=== PATIENT | female | born 1995 | race Caucasian/White ===

== ENCOUNTER 2020-04-04 10:08 | Emergency (ER) | payer OTHER, SELFPAY ==
[2020-04-04 10:12] VITALS: BP 143/78; PULSE 82; RESP 20; TEMP 36.6; O2SAT 99; BMI 31.2
[2020-04-04 10:51] VITALS: BP 125/71; PULSE 68; RESP 18; O2SAT 98
--- NOTE | 2020-04-04 10:51 | XR_ITS ---
EXAMINATION: XR CHEST CLINICAL INFORMATION: Shortness of breath COMPARISON: Chest radiographs 04/22/2017, 03/15/2017 TECHNIQUE: Portable upright AP view of the chest was obtained. FINDINGS: The lungs are clear. There is no airspace consolidation or definite groundglass opacity. No pleural reaction, pneumothorax, or effusion. The heart is normal in size. The hilar and mediastinal contours are normal. There is gentle curvature upper thoracic spine. No visible acute bony abnormality. XR/XR chest 1V IMPRESSION: Unremarkable examination.
--- NOTE | 2020-04-04 10:54 | ECG_ITS ---
Test Reason : DIZZINESS Blood Pressure : / mmHG Vent. Rate : 058 BPM Atrial Rate : 058 BPM P-R Int : 142 ms QRS Dur : 084 ms QT Int : 406 ms P-R-T Axes : 033 060 029 degrees QTc Int : 398 ms Sinus bradycardia Otherwise normal ECG When compared with ECG of 15-MAR-2017 12:26, No significant change was found Referred By: Elias Lal Electronically Signed By:DONNA HERRING MD
--- NOTE | 2020-04-04 10:57 | PC.NURSE ---
Patient arrives reporting taking 800mg Ibuprofen with 1000mg Excedrin this morning to prevent a migraine. Patient reports shortly after becoming shaky, diaphoretic, and dizzy. Alert and oriented at this time. Neuros intact. Respirations regular and even. Skin PWD. Darrick GOMEZ at bedside to evaluate. Awaiting orders. Report given to Drew CANAS.
[2020-04-04 11:43] LABS: MANUAL DIFF FLAG NO
[2020-04-04 11:45] LABS: Basophils Absolute Auto 0.1 X10*3/uL (0.0-0.2); Basophils Percent Auto 0.5 % (0-2); Eosinophils Absolute Auto 0.1 X10*3/uL (0.0-0.4); Eosinophils Percent Auto 0.9 % (0-4); Hematocrit 40.9 % (37-47); Hemoglobin 13.2 g/dl (12.0-16.0); Imm Gran Abs Auto 0.02 X10*3/uL (0.00-0.03); Imm Gran Pct Auto 0.2 % (0.0-0.4); Lymphocytes Absolute Auto 1.9 X10*3/uL (1.2-4.9); Lymphocytes Percent Auto 19.4 % (20-40); Mean Corpuscular HGB Conc 32.3 g/dl (31.0-35.0); Mean Corpuscular Hemoglobin 28.8 pg (27.0-33.0); Mean Corpuscular Volume 89.3 fL (80-98); Mean Platelet Volume 10.3 fL (9.4-12.3); Monocytes Absolute Auto 0.6 X10*3/uL (0.1-1.2); Monocytes Percent Auto 5.7 % (2-11); Neutrophils Absolute Auto 7.1 X10*3/uL (2.0-8.3); Neutrophils Percent Auto 73.3 % (45-73); Platelet Count 291 X10*3/uL (160-400); Red Blood Count 4.58 X10*6/uL (4.20-5.50); Red Cell Distribution Width 13.5 % (11.0-16.0); White Blood Count 9.6 X10*3/uL (4.8-10.8)
[2020-04-04] MEDS: 0.9 % Sodium Chloride 1,000 ML 999 ML IVCONT (11:48)
[2020-04-04] MEDS: LORazepam 1 MG TABLET PO (11:49)
[2020-04-04 11:52] VITALS: BP 118/75; PULSE 60; RESP 18; TEMP 36.9; O2SAT 100
[2020-04-04 11:56] LABS: UPreg QC Valid YES; Urine Pregnancy NEGATIVE (NEGATIVE)
[2020-04-04 12:09] LABS: Acetaminophen LAB 4 mcg/mL (<30); Salicylate < 5.0 mg/dL (15-30)
[2020-04-04 12:10] LABS: Ethanol < 10 mg/dL
[2020-04-04 12:11] LABS: Anion Gap 13 (12-20); Blood Urea Nitrogen 14 mg/dL (9-16); Calcium 9.2 mg/dL (8.4-10.2); Carbon Dioxide 25 mmol/L (22-29); Chloride 105 mmol/L (96-108); Creatinine Clr Calc Pharmacy 106.2; Estimated Glomerular Filt Rate > 60; Glucose Random 86 mg/dL (60-115); Potassium 4.8 mmol/l (3.3-5.1); Sodium 138 mmol/L (135-145)
--- NOTE | 2020-04-04 12:12 | PC.NURSE ---
PT AMBULATED TO BR W/ EVEN STEADY GAIT.
[2020-04-04 12:13] LABS: Alanine Aminotransferase 16 U/L (0-31); Albumin Level 4.3 g/dL (3.5-5.0); Alkaline Phosphatase 61 U/L (39-117); Aspartate Amino Transferase 14 U/L (5-31); Bilirubin Direct 0.3 mg/dL (0.0-0.5); Bilirubin Total 0.5 mg/dL (0.0-1.0); Total Protein 7.2 g/dL (6.5-8.0)
[2020-04-04 12:23] LABS: Amphetamine Screen Urine Not Detected (Not Detect); Barbiturates, Urine Not Detected (Not Detect); Benzodiazepines Screen Urine Not Detected (Not Detect); Cannabinoid Screen Urine Not Detected (Not Detect); Cocaine Screen Urine Not Detected (Not Detect); Opiate Screen Urine Not Detected (Not Detect); Phencyclidine Screen Urine Not Detected (Not Detect)
[2020-04-04 13:38] VITALS: BP 121/79; PULSE 67; RESP 16; TEMP 36.6; O2SAT 99
--- NOTE | 2020-04-04 13:42 | ED_ITS ---
HPI - Dizziness General Chief Complaint: Dizziness Stated Complaint: dizziness Time Seen by Provider: 04/04/20 10:38 History of Present Illness HPI Narrative: Patient complains of headache dizziness anxiety, she has a long history of migraines and has had a run of typical migraines for 3 days this started 3 days ago and she gets a mild aura of blurred vision prior to her migraines and then gets a headache with photophobia that is over the top of her head and behind the left eye, this is typical presentation of her migraines Usually she just gets a migraine which resolves and she treats it with Excedrin and Motrin, but for the last 3 days the migraine seems to get better than a few hours later it starts again with the same aura in the same return of typical symptoms Today she was at work and felt a migraine coming on again and she says she has been increasingly anxious about her migraines and at work she got an episode of feeling lightheaded dizzy short of breath with tingling in her toes and fingertips and feeling very anxious, but her headache was very mild and she comes here with a main complaint of feeling short of breath dizzy and anxious Related Data Previous Rx's Medication Instructions Recorded lorazepam [Ativan] 1 mg PO TID PRN #10 tab 04/04/20 sumatriptan succinate [Imitrex] See Rx Instructions .ROUTE 04/04/20 .COMPLEX #10 tab Allergies Allergy/AdvReac Type Severity Reaction Status Date / Time No Known Allergies Allergy Unverified 12/28/19 16:18 [No Known Allergies*] Review of Systems Review of Systems: Positive for dizziness shortness of breath and anxiety and headache Negatives are no fever no chills no shortness of breath no neck pain no chest pain no palpitations no exertional symptoms no nausea no vomiting no abdominal pain no fainting no urinary symptoms no numbness no weakness no rash, no calf pain no leg swelling Yes all other systems are reviewed and are negative [facility] Past Medical History Attestation statement: The following information was validated with the patient. [facility] Narrative: Patient has history of migraine and anxiety for which she is treated by therapist, but she has had increasingly frequent episodes of stress and anxiety She does smoke cigarettes and said she has increased her smoking due to her cup uncontrolled episodes of anxiety, no drugs no alcohol Medical History (Updated 04/05/20 @ 00:00 by Background Daemon) Asthma Social History Social History Alcohol intake: current Alcohol intake frequency: 0-2 drinks per day Smoking Status: Current every day smoker Use of substances other than those prescribed or required for medical reasons: No Advance Directives: No Advance Directives Information Provided: Yes Physical Exam Vital Signs: Vital Signs: Last Vital Signs Temp 98 F 04/04/20 13:38 Pulse 67 04/04/20 13:38 Resp 16 04/04/20 13:38 BP 121/79 04/04/20 13:38 Pulse Ox 99 04/04/20 13:38 Body Mass Index 31.2 General appearance is anxious appearing patient in no distress, cooperative appropriate A&O x3 Normocephalic atraumatic, pharynx is well hydrated The neck is supple The chest is clear with full symmetric equal breath sounds, no respiratory distress The heart rate and rhythm regular, no murmurs Abdomen soft nontender Extremities no calf tenderness no edema Course Course Course Narrative: Chest x-ray was normal Lab work did not reveal any anemia or hypoglycemia, patient was not , aspirin and Tylenol levels were normal Patient was treated with Ativan which relieved her anxiety and her dizziness and all symptoms resolved, she was also treated with steroid in hopes of preventing recurrence of her migraines She was advised to follow with primary doctor for further evaluation of her anxiety and we started I am a tracks as a potential abortive agent if she gets the or and feels a migraine is coming on She denied any suicidal or violent thoughts associated with her anxiety MDM - Dizziness Lab Data Attestation: I reviewed the patient's lab results. Result diagrams: 04/04/20 11:26 04/04/20 11:26 Labs: Lab Results 04/04/20 04/04/20 04/04/20 Range/Units 11:20 11:21 11:26 WBC 9.6 (4.8-10.8) X10*3/uL RBC 4.58 (4.20-5.50) X10*6/uL Hgb 13.2 (12.0-16.0) g/dl Hct 40.9 (37-47) % MCV 89.3 (80-98) fL MCH 28.8 (27.0-33.0) pg MCHC 32.3 (31.0-35.0) g/dl RDW 13.5 (11.0-16.0) % Plt Count 291 (160-400) X10*3/uL MPV 10.3 (9.4-12.3) fL Immature Gran % (Auto) 0.2 (0.0-0.4) % Neut % (Auto) 73.3 H (45-73) % Lymph % (Auto) 19.4 L (20-40) % [place] % (Auto) 5.7 (2-11) % Eos % (Auto) 0.9 (0-4) % Baso % (Auto) 0.5 (0-2) % Lymph # (Auto) 1.9 (1.2-4.9) X10*3/uL [place] # (Auto) 0.6 (0.1-1.2) X10*3/uL Eos # (Auto) 0.1 (0.0-0.4) X10*3/uL Baso # (Auto) 0.1 (0.0-0.2) X10*3/uL Abs Immat Gran (auto) 0.02 (0.00-0.03) X10*3/uL Absolute Neuts (auto) 7.1 (2.0-8.3) X10*3/uL Absolute Nucleated RBC 0.000 (0.0-0.012) X10*3/uL Nucleated RBC % (auto) 0.0 (0.0-0.2) /100WBC Sodium (135-145) mmol/L Potassium (3.3-5.1) mmol/l Chloride (96-108) mmol/L Carbon Dioxide (22-29) mmol/L Anion Gap (12-20) BUN (9-16) mg/dL Creatinine (0.5-1.4) mg/dL Estim Creat Clear Calc Estimated GFR Random Glucose (60-115) mg/dL Calcium (8.4-10.2) mg/dL Total Bilirubin (0.0-1.0) mg/dL Direct Bilirubin (0.0-0.5) mg/dL AST (5-31) U/L ALT (0-31) U/L Alkaline Phosphatase (39-117) U/L Total Protein (6.5-8.0) g/dL Albumin (3.5-5.0) g/dL Urine Test NEGATIVE (NEGATIVE) Salicylates (15-30) mg/dL Urine Opiates Screen Not Detected (Not Detect) Acetaminophen (<30) mcg/mL Ur Barbiturates Screen Not Detected (Not Detect) Ur Phencyclidine Scrn Not Detected (Not Detect) Ur Amphetamines Screen Not Detected (Not Detect) U Benzodiazepines Scrn Not Detected (Not Detect) Urine Cocaine Screen Not Detected (Not Detect) U Marijuana (THC) Screen Not Detected (Not Detect) Ethyl Alcohol mg/dL 04/04/20 04/04/20 04/04/20 Range/Units 11:26 11:26 11:26 WBC (4.8-10.8) X10*3/uL RBC (4.20-5.50) X10*6/uL Hgb (12.0-16.0) g/dl Hct (37-47) % MCV (80-98) fL MCH (27.0-33.0) pg MCHC (31.0-35.0) g/dl RDW (11.0-16.0) % Plt Count (160-400) X10*3/uL MPV (9.4-12.3) fL Immature Gran % (Auto) (0.0-0.4) % Neut % (Auto) (45-73) % Lymph % (Auto) (20-40) % [place] % (Auto) (2-11) % Eos % (Auto) (0-4) % Baso % (Auto) (0-2) % Lymph # (Auto) (1.2-4.9) X10*3/uL [place] # (Auto) (0.1-1.2) X10*3/uL Eos # (Auto) (0.0-0.4) X10*3/uL Baso # (Auto) (0.0-0.2) X10*3/uL Abs Immat Gran (auto) (0.00-0.03) X10*3/uL Absolute Neuts (auto) (2.0-8.3) X10*3/uL Absolute Nucleated RBC (0.0-0.012) X10*3/uL Nucleated RBC % (auto) (0.0-0.2) /100WBC Sodium 138 (135-145) mmol/L Potassium 4.8 (3.3-5.1) mmol/l Chloride 105 (96-108) mmol/L Carbon Dioxide 25 (22-29) mmol/L Anion Gap 13 (12-20) BUN 14 (9-16) mg/dL Creatinine 0.72 (0.5-1.4) mg/dL Estim Creat Clear Calc 106.2 Estimated GFR > 60 Random Glucose 86 (60-115) mg/dL Calcium 9.2 (8.4-10.2) mg/dL Total Bilirubin (0.0-1.0) mg/dL Direct Bilirubin (0.0-0.5) mg/dL AST (5-31) U/L ALT (0-31) U/L Alkaline Phosphatase (39-117) U/L Total Protein (6.5-8.0) g/dL Albumin (3.5-5.0) g/dL Urine Test (NEGATIVE) Salicylates < 5.0 L (15-30) mg/dL Urine Opiates Screen (Not Detect) Acetaminophen 4 (<30) mcg/mL Ur Barbiturates Screen (Not Detect) Ur Phencyclidine Scrn (Not Detect) Ur Amphetamines Screen (Not Detect) U Benzodiazepines Scrn (Not Detect) Urine Cocaine Screen (Not Detect) U Marijuana (THC) Screen (Not Detect) Ethyl Alcohol < 10 mg/dL 04/04/20 Range/Units 11:26 WBC (4.8-10.8) X10*3/uL RBC (4.20-5.50) X10*6/uL Hgb (12.0-16.0) g/dl Hct (37-47) % MCV (80-98) fL MCH (27.0-33.0) pg MCHC (31.0-35.0) g/dl RDW (11.0-16.0) % Plt Count (160-400) X10*3/uL MPV (9.4-12.3) fL Immature Gran % (Auto) (0.0-0.4) % Neut % (Auto) (45-73) % Lymph % (Auto) (20-40) % [place] % (Auto) (2-11) % Eos % (Auto) (0-4) % Baso % (Auto) (0-2) % Lymph # (Auto) (1.2-4.9) X10*3/uL [place] # (Auto) (0.1-1.2) X10*3/uL Eos # (Auto) (0.0-0.4) X10*3/uL Baso # (Auto) (0.0-0.2) X10*3/uL Abs Immat Gran (auto) (0.00-0.03) X10*3/uL Absolute Neuts (auto) (2.0-8.3) X10*3/uL Absolute Nucleated RBC (0.0-0.012) X10*3/uL Nucleated RBC % (auto) (0.0-0.2) /100WBC Sodium (135-145) mmol/L Potassium (3.3-5.1) mmol/l Chloride (96-108) mmol/L Carbon Dioxide (22-29) mmol/L Anion Gap (12-20) BUN (9-16) mg/dL Creatinine (0.5-1.4) mg/dL Estim Creat Clear Calc Estimated GFR Random Glucose (60-115) mg/dL Calcium (8.4-10.2) mg/dL Total Bilirubin 0.5 (0.0-1.0) mg/dL Direct Bilirubin 0.3 (0.0-0.5) mg/dL AST 14 (5-31) U/L ALT 16 (0-31) U/L Alkaline Phosphatase 61 (39-117) U/L Total Protein 7.2 (6.5-8.0) g/dL Albumin 4.3 (3.5-5.0) g/dL Urine Test (NEGATIVE) Salicylates (15-30) mg/dL Urine Opiates Screen (Not Detect) Acetaminophen (<30) mcg/mL Ur Barbiturates Screen (Not Detect) Ur Phencyclidine Scrn (Not Detect) Ur Amphetamines Screen (Not Detect) U Benzodiazepines Scrn (Not Detect) Urine Cocaine Screen (Not Detect) U Marijuana (THC) Screen (Not Detect) Ethyl Alcohol mg/dL ECG Data Interpretation: EKG was sinus bradycardia with a rate of 58, no acute ST changes, MD was normal QT was normal and QRS duration was normal Discharge Plan Discharge Clinical Impression: Migraine, Anxiety Patient Disposition: Home, Self-Care Additional Instructions: We treated you for both migraine and anxiety M we are sending her home with I am a tracks which is a medication that you will take at the 1st sign of migraine to prevent it from progressing, we also gave yo u a dose of Decadron which is a steroid which often will prevent recurrent migraine from happening again We gave you an Ativan for anxiety which is also helpful Return any time any worse condition or any concerns and follow with primary doctor Prescriptions: New sumatriptan succinate [Imitrex] 50 mg tablet See Rx Instructions .ROUTE .COMPLEX Qty: 10 RF: 0 lorazepam [Ativan] 1 mg tablet 1 mg PO TID PRN (Reason: anxiety) Qty: 10 RF: 0 Stand Alone Forms: Work/School Release Interventions: ED Discharge Assessment Last Done: 04/04/20 14:20 Discharge Date/Time: 04/04/20 14:25
--- NOTE | 2020-04-04 13:43 | PC.NURSE ---
PT RESTING S/F IN BED, REPORTS TOTAL RESOLUTION OF SX, STS FEELS WELL AND IS READY FOR D/C.
== END 2020-04-04 14:25 | disposition home or self-care (01) ==
PROVIDERS: Physician Assistant Medical; Emergency Provider Emergency Medicine Emergency Medical Services
DX: G43.909 Migraine, unspecified, not intractable, without status migrainosus (principal); F41.9 Anxiety disorder, unspecified; Z79.899 Other long term (current) drug therapy
CPT/HCPCS: 36415; 71045; 80048; 80076; 80307; 80320; 81025; 85025; 93005; 96361; 96374; 99284; G0480; J1100

== ENCOUNTER 2020-08-08 14:52 | Emergency (ER) | payer OTHER, SELFPAY ==
[2020-08-08 15:58] LABS: Glucose Urine UA NEG (NEG); Leukocyte Esterase Urine NEG (NEG); Nitrite Urine NEG (NEG); PH 6.5 (5.0-8.0); Specific Gravity - Urine 1.015 (1.005-1.025); Urine Blood TRACE (NEG); Urine Ketones NEG (NEG); Urine Protein NEG (NEG-TRACE)
[2020-08-08 15:59] LABS: Appearance Urine CLEAR; Color Urine YELLOW
[2020-08-08 16:00] LABS: UPreg QC Valid YES; Urine Pregnancy NEGATIVE (NEGATIVE)
[2020-08-08 16:06] LABS: Bacteria Urine TRACE /LPF; Mucus Urine TRACE /LPF; RBC Urine 0-2 /HPF (0); Squamous Epithelial Cell Urine TRACE /LPF; WBC Urine 0-2 /HPF (0-4)
--- NOTE | 2020-08-08 16:13 | ED.ABDPAIN ---
HPI - Abdominal Pain General Chief Complaint: Abdominal Pain Stated Complaint: LOWER ABD PAIN Time Seen by Provider: 08/08/20 16:12 Source: patient Mode of arrival: ambulatory Limitations: no limitations History of Present Illness HPI narrative: Patient history of ovarian cyst complaining of pain in left lower abdomen for last 2- 3 days got worse today pain increased with ambulation in urination. No fever no chills no flank pain no vomiting or diarrhea patient feels slightly nauseated patient had normal bowel movements history of kidney stone no vaginal discharge or bleeding Related Data Previous Rx's Medication Instructions Recorded lorazepam [Ativan] 1 mg PO TID PRN #10 tab 04/04/20 sumatriptan succinate [Imitrex] See Rx Instructions .ROUTE 04/04/20 .COMPLEX #10 tab Allergies Allergy/AdvReac Type Severity Reaction Status Date / Time No Known Allergies Allergy Verified 08/08/20 16:20 [No Known Allergies*] Review of Systems Review of Systems Constitutional : No Weight loss, No Fever, No Chills ENT/Mouth : No sore throat, No Rhinorrhea Eyes: No Eye Pain, No Swelling Cardiovascular : No Chest Pain, no palpitations Respiratory : No Cough, No Sputum, no shortness of breath Gastrointestinal : + Nausea, No Vomiting, No Diarrhea, + abdominal Pain, no black stools Genitourinary : No Dysuria, No Urinary Frequency Musculoskeletal : No joint pain, No Myalgias, No Joint Swelling Skin : No Skin Lesions, No rash Neuro : No Weakness, No Numbness, No Dizziness, No Headache Psych : No Anxiety/Panic, No Depression Heme/Lymph: No Bruising, No Lymphadenopathy Endocrine : No Polyuria, No Polydipsia All other systems reviewed and are negative Physical Exam Vital Signs: Vital Signs: Last Vital Signs Temp 98.7 F 08/08/20 16:17 Pulse 64 08/08/20 16:17 Resp 16 08/08/20 16:17 BP 125/61 08/08/20 16:17 Pulse Ox 100 08/08/20 16:17 Body Mass Index 35.3 Appearance: Alert. Oriented X3. No acute distress. Eyes: PERRLA, No Nystagmus ENT: Pharynx normal. Oral Mucosa moist Neck: Normal inspection. Neck supple. CVS: Normal heart rate and rhythm. Pulses normal. Respiratory: No respiratory distress. Equal air entry bilateral, no wheezing/rales/rhonchi Abdomen: Soft slight deep tenderness left lower quadrant suprapubic area no rebound tenderness or guarding Bowel sounds are present, no mass palpable, no CVA tenderness Skin: Skin warm and dry. Normal skin color. Normal skin turgor. Extremities: No lower extremity edema. No calf tenderness Neuro: Oriented X 3. No motor deficit. No sensory deficit.No cerebellar signs , cranial nerves II-XII intact Course Reevaluation(s) Reevaluation #1: Patient eloped from the ED without ultrasound Time: 17:01 MDM - Abdominal Pain MDM Narrative Medical decision making narrative: Patient lower abdominal pain urine negative for UTI or will do ultrasound to rule out ovarian cyst Lab Data Labs: Lab Results 08/08/20 08/08/20 Range/Units 15:49 15:49 Urine Color YELLOW Urine Appearance CLEAR Urine pH 6.5 (5.0-8.0) Ur Specific [place] 1.015 (1.005-1.025) Urine Protein NEG (NEG-TRACE) MG/DL Urine Glucose (UA) NEG (NEG) MG/DL Urine Ketones NEG (NEG) MG/DL Urine Blood TRACE (NEG) Urine Nitrite NEG (NEG) Ur Leukocyte Esterase NEG (NEG) Urine RBC 0-2 (0) /HPF Urine WBC 0-2 (0-4) /HPF Ur Squamous Epith Cells TRACE /LPF Urine Bacteria TRACE /LPF Urine Mucus TRACE /LPF Urine Test NEGATIVE (NEGATIVE) Discharge Plan Discharge Prescriptions: No Action sumatriptan succinate [Imitrex] 50 mg tablet See Rx Instructions .ROUTE .COMPLEX Qty: 10 RF: 0 lorazepam [Ativan] 1 mg tablet 1 mg PO TID PRN (Reason: anxiety) Qty: 10 RF: 0 PMFSH Past Medical History Medical History Asthma Social History Social History Alcohol intake: current Alcohol intake frequency: 0-2 drinks per day Smoking Status: Current every day smoker Advance Directives: No Advance Directives Information Provided: Yes
[2020-08-08 16:17] VITALS: BP 125/61; PULSE 64; RESP 16; TEMP 37.1; O2SAT 100; BMI 35.3
== END 2020-08-08 17:15 | disposition left against medical advice (07) ==
PROVIDERS: Emergency Provider Emergency Medicine
DX: R10.32 Left lower quadrant pain (principal); F17.200 Nicotine dependence, unspecified, uncomplicated
CPT/HCPCS: 81001; 81025; 99283

== ENCOUNTER 2021-02-28 12:05 | Emergency (ER) | payer OTHER, SELFPAY ==
--- NOTE | 2021-02-28 12:16 | ECG_ITS ---
Test Reason : PALPIATIONS Blood Pressure : / mmHG Vent. Rate : 077 BPM Atrial Rate : 077 BPM P-R Int : 156 ms QRS Dur : 080 ms QT Int : 356 ms P-R-T Axes : 050 040 013 degrees QTc Int : 402 ms Normal sinus rhythm Normal ECG When compared with ECG of 04-APR-2020 11:12, Heart rate has increased Referred By: Generic ED Physician Electronically Signed By:ROYCE COTA MD
[2021-02-28 12:40] VITALS: BP 134/76; PULSE 90; RESP 18; TEMP 37.5; O2SAT 99; BMI 34.2
== END 2021-02-28 21:00 | disposition left against medical advice (07) ==
PROVIDERS: Emergency Provider Emergency Medicine
DX: R00.0 Tachycardia, unspecified (principal)
CPT/HCPCS: 93005; 99283

== ENCOUNTER 2021-04-08 12:46 | Emergency (ER) | payer OTHER, SELFPAY ==
[2021-04-08 13:50] VITALS: BP 148/74; PULSE 94; RESP 18; TEMP 37.1; O2SAT 98; BMI 35.2
== END 2021-04-08 21:40 | disposition left against medical advice (07) ==
LOC: HO.ED 21:38
PROVIDERS: Emergency Provider Emergency Medicine; PCP Internal Medicine
DX: U07.1 COVID-19 (principal)
CPT/HCPCS: 99281; 99282

== ENCOUNTER 2023-08-11 10:28 | Emergency (ER) | payer OTHER, SELFPAY ==
[2023-08-11 12:04] VITALS: BP 115/70; PULSE 57; RESP 16; TEMP 36.2; O2SAT 100; BMI 35.0
--- NOTE | 2023-08-11 12:07 | ED.GENADULT ---
HPI - General Adult General Chief complaint: General Medical Stated complaint: Abscess inner thigh Time Seen by Provider: 08/11/23 15:22 Source: patient Mode of arrival: ambulatory Limitations: no limitations History of Present Illness HPI narrative: 28-year-old female history of obesity presents with complaints of recurrent abscess to the inner thighs ongoing for awhile however she has had this 1 abscess for about a week he reports it is ?size of a softball? and she feels like there is ?channels inside? patient reports it is very uncomfortable she reports she has been getting cyst for awhile however it seems to be worsening. She saw a executive secretary once they gave her topical cream which she is supposed to be applying however not really helping. Denies fevers, chills, nausea, vomiting, abdominal pain. Earlier patient had some substernal chest discomfort without shortness of breath, no radiation of pain, however this has resolved, she tells me my chest just felt sore but now states its gone. Related Data Previous Rx's ?Medication ?Instructions ?Recorded lorazepam 1 mg tablet (Ativan) 1 mg PO TID PRN anxiety #10 tabs 04/04/20 sumatriptan succinate 50 mg tablet See Rx Instructions PO .COMPLEX 04/04/20 (Imitrex) #10 tabs cephalexin 500 mg tablet 500 mg PO Q6H 10 days #40 tabs 08/11/23 clindamycin phosphate 1 % topical 1 appl topical BEDTIME #30 grams 08/11/23 gel Allergies Allergy/AdvReac Type Severity Reaction Status Date / Time No Known Allergies Allergy Verified 08/11/23 12:07 [No Known Allergies*] Review of Systems Review of Systems: Yes all other systems are reviewed and are negative [facility] Past Medical History Attestation statement: The following information was validated with the patient. Source: old records reviewed and nursing notes reviewed Medical History Asthma Social History Social History Alcohol intake: current Alcohol intake frequency: 0-2 drinks per day Advance Directives: No Advance Directives Information Provided: No Do you have a plan to hurt others: No Plan Physical Exam ED Vital Signs: Vital Signs - 24 hr 08/11/23 12:04 08/11/23 17:38 Temperature 97.1 F 97.1 F Pulse Rate 57 57 Respiratory Rate 16 16 Blood Pressure 115/70 115/70 Pulse Oximetry 100 100 Oxygen Delivery Method Room Air Room Air BMI result Body Mass Index 35.0 vss Appearance: Alert.? Oriented X3.? No acute distress.? Head: Normocephalic, atraumatic, no step-offs or deformities Eyes: Pupils equal, round and reactive to light.? Neck: Normal inspection.? Neck supple.? CVS: Normal heart rate and rhythm.? Pulses normal.? Respiratory: No respiratory distress.? Breath sounds normal.? Abdomen: Soft and nontender.? Skin: Skin warm and dry.? Normal skin color.? Normal skin turgor.? + small abscess to left inner thigh 3 cm x 3 cm indurated w/ overlying errythema no warmth no purulence. Extremities: No lower extremity edema.? No calf ttp. 5/5 strength to bilateral upper and lower extremities Neuro: Oriented X 3.? No motor deficit.? No sensory deficit. CN 2-12 intact Course Course Course Narrative: RME- 28 year old female presents for evaluation of left inner thigh abscess. Reports history of similar. She reports it is the size of a softball. It has been there for about one week. Also reports chest pain for since the last 2 days, She endorses heartburn as well as increased anxiety. Will add on EKG Reevaluation(s) Reevaluation #1: EKG non ischemic. Time: 16:16 Reevaluation #2: CBC slight leukocytosis likely secondary to abscess, troponin negative EKG nonischemic. Patient to be discharged home with general surgery follow-up, PCP follow-up. Time: 17:51 Medications Administered Discontinued Medications Generic Name Dose Route Start Last Admin Trade Name Freq PRN Reason Stop Dose Admin Ketorolac Tromethamine 30 mg 08/11/23 16:15 08/11/23 16:43 Ketorolac Tromethamine 30 Mg/Ml Vial IM 08/11/23 16:16 30 mg ONCE ONE Administration Medical Decision Making Medical Decision Making MDM Narrative: 28 year old female presents w/ painful abscess to left inner thigh X 1 week, had chest soreness which has since resolved. PE w/ + small abscess to left inner thigh 3 cm x 3 cm indurated w/ overlying errythema no warmth no purulence. Substernal chest wall tenderness on exam History and physical exam concerning for small abscess with overlying cellulitis likely hidradenitis suppurativa, unlikely Annabelle gangrene, necrotizing infection. Chest pain likely musculoskeletal she did have anterior chest wall tenderness to palpation on exam. Unlikely costochondritis pericarditis, PE, ACS, dissection, pneumonia Plan basic labs, try to do fine needle aspiration however no purulence it is all likely inflammatory. Advised on warm compresses to affected area. Differential Diagnosis Differential Diagnoses: The differential diagnosis associated with the presentation includes History and physical exam concerning for small abscess with overlying cellulitis likely hidradenitis suppurativa, unlikely Annabelle gangrene, necrotizing infection. Chest pain likely musculoskeletal she did have anterior chest wall tenderness to palpation on exam. Unlikely costochondritis pericarditis, PE, ACS, dissection, pneumonia Admission/Observation Consideration of admission/observation: Escalation of care including admission/observation considered unlikely Lab Data 08/11/23 16:15 08/11/23 16:15 Labs: Lab Results 08/11/23 Range/Units 16:15 WBC 11.9 H (4.8-10.8) X10*3/uL RBC 4.58 (4.20-5.50) X10*6/uL Hgb 13.1 (12.0-16.0) g/dl Hct 40.0 (37.0-47.0) % MCV 87.3 (80.0-98.0) fL MCH 28.6 (27.0-33.0) pg MCHC 32.8 (31.0-35.0) g/dl RDW 14.7 (11.0-16.0) % Plt Count 243 (160-400) X10*3/uL MPV 10.3 (9.4-12.3) fL Immature Gran % (Auto) 0.4 (0.0-0.4) % Neut % (Auto) 70.2 (45-73) % Lymph % (Auto) 21.1 (20-40) % [place] % (Auto) 5.5 (2-11) % Eos % (Auto) 2.3 (0-4) % Baso % (Auto) 0.5 (0-2) % Lymph # (Auto) 2.5 (1.2-4.9) X10*3/uL [place] # (Auto) 0.7 (0.1-1.2) X10*3/uL Eos # (Auto) 0.3 (0.0-0.4) X10*3/uL Baso # (Auto) 0.1 (0.0-0.2) X10*3/uL Abs Immat Gran (auto) 0.05 H (0.00-0.03) X10*3/uL Absolute Neuts (auto) 8.3 (2.0-8.3) x10*3/uL Absolute Nucleated RBC 0.000 (0.0-0.012) X10*3/uL Nucleated RBC % (auto) 0.0 (0.0-0.2) /100WBC Sodium 138 (135-145) mmol/L Potassium 4.0 (3.3-5.1) mmol/L Chloride 109 H (96-108) mmol/L Carbon Dioxide 22 (22-29) mmol/L Anion Gap 11 L (12-20) BUN 9 (9-16) mg/dL Creatinine 0.70 (0.5-1.4) mg/dL Estim Creat Clear Calc 112.0 Estimated GFR > 60 Random Glucose 84 (60-115) mg/dL Calcium 8.8 (8.4-10.2) mg/dL Total Bilirubin 0.2 (0.0-1.0) mg/dL AST 15 (5-31) U/L ALT 16 (0-31) U/L Alkaline Phosphatase 55 (39-117) U/L Troponin I High Sens < 2.7 (<3.5-17.0) ng/L Total Protein 6.9 (6.5-8.0) g/dL Albumin 3.8 (3.5-5.0) g/dL Independent Interpretation I performed an independent interpretation of an: EKG (Vent. Rate : 052 BPM Atrial Rate : 052 BPM P-R Int : 160 ms QRS Dur : 076 ms QT Int : 394 ms P-R-T Axes : 034 054 025 degrees QTc Int : 366 ms Sinus bradycardia with sinus arrhythmia Otherwise normal ECG When compared with ECG of 28-FEB-2021 12:23, Vent. rate has decre) Radiology Impression Discussion of test interpretation with radiology: I have reviewed the radiologist's reading. Prescription Management I considered prescription management with: Pain Medication (toradol ) and Antibiotic Chronic Conditions Patient?s care impacted by: Other (obesity ) Critical Care Time Critical Care Time Critical Care Time: No Discharge Plan Discharge Clinical Impression: Hidradenitis suppurativa Patient Disposition: Home, Self-Care Instructions: Hidradenitis Suppurativa (ED) Additional Instructions: Take your medications as prescribed. If you were prescribed antibiotics today, it is important that you take your medication to their entirety, do not skip any doses, do not finish them early. Follow-up with your primary care provider this week. Return to the emergency department with new or worsening symptoms. Such as fevers, chills, chest pain, shortness of breath, nausea, vomiting, dizziness, headache, vision changes, lethargy In case of emergency call 911 Apply warm compresses frequently. Apply topical antibiotic as prescribed and take oral antibiotics as prescribed. Return with new or worsening symptoms Follow-up with general surgery Prescriptions: New clindamycin phosphate 1 % gel 1 appl topical BEDTIME Qty: 30 0RF cephalexin 500 mg tablet 500 mg PO Q6H 10 Days Qty: 40 0RF No Action sumatriptan succinate [Imitrex] 50 mg tablet See Rx Instructions .ROUTE .COMPLEX Qty: 10 0RF Rx Instructions: take 1 tab at onset of headache; if no relief may repeat 1 tab after at least 2 hrs; max = 4 tabs/24 hr lorazepam [Ativan] 1 mg tablet 1 mg PO TID PRN (Reason: anxiety) Qty: 10 0RF Rx Instructions: This medication will cause drowsiness, home use only, no driving for 6 hours after taking Referrals: [facility] [place] [facility] [Provider Group] - 1 day Physician,Unknown J [Primary Care Provider] - 2 days Stand Alone Forms: Work/School Release Interventions: ED Discharge Assessment Last Done: 08/11/23 17:38 Discharge Date/Time: 08/11/23 17:39 Print Language: Yoruba
--- NOTE | 2023-08-11 12:09 | ECG_ITS ---
Test Reason : pain Blood Pressure : / mmHG Vent. Rate : 052 BPM Atrial Rate : 052 BPM P-R Int : 160 ms QRS Dur : 076 ms QT Int : 394 ms P-R-T Axes : 034 054 025 degrees QTc Int : 366 ms Sinus bradycardia with sinus arrhythmia Otherwise normal ECG When compared with ECG of 28-FEB-2021 12:23, Vent. rate has decreased BY 25 BPM Referred By: David Cedeño Electronically Signed By:OZIEL WEBSTER
[2023-08-11 16:21] LABS: MANUAL DIFF FLAG NO
[2023-08-11 16:23] LABS: Basophils Absolute Auto 0.1 X10*3/uL (0.0-0.2); Basophils Percent Auto 0.5 % (0-2); Eosinophils Absolute Auto 0.3 X10*3/uL (0.0-0.4); Eosinophils Percent Auto 2.3 % (0-4); Hemoglobin 13.1 g/dl (12.0-16.0); Imm Gran Abs Auto 0.05 X10*3/uL (0.00-0.03); Imm Gran Pct Auto 0.4 % (0.0-0.4); Lymphocytes Absolute Auto 2.5 X10*3/uL (1.2-4.9); Lymphocytes Percent Auto 21.1 % (20-40); Mean Corpuscular HGB Conc 32.8 g/dl (31.0-35.0); Mean Corpuscular Hemoglobin 28.6 pg (27.0-33.0); Mean Corpuscular Volume 87.3 fL (80.0-98.0); Mean Platelet Volume 10.3 fL (9.4-12.3); Monocytes Absolute Auto 0.7 X10*3/uL (0.1-1.2); Monocytes Percent Auto 5.5 % (2-11); Neutrophils Absolute Auto 8.3 x10*3/uL (2.0-8.3); Neutrophils Percent Auto 70.2 % (45-73); Platelet Count 243 X10*3/uL (160-400); Red Blood Count 4.58 X10*6/uL (4.20-5.50); Red Cell Distribution Width 14.7 % (11.0-16.0); White Blood Count 11.9 X10*3/uL (4.8-10.8)
[2023-08-11] MEDS: Ketorolac Tromethamine 30 MG/ML VIAL IM (16:43)
[2023-08-11 16:48] LABS: Alanine Aminotransferase 16 U/L (0-31); Albumin Level 3.8 g/dL (3.5-5.0); Alkaline Phosphatase 55 U/L (39-117); Anion Gap 11 (12-20); Aspartate Amino Transferase 15 U/L (5-31); Bilirubin Total 0.2 mg/dL (0.0-1.0); Blood Urea Nitrogen 9 mg/dL (9-16); Calcium 8.8 mg/dL (8.4-10.2); Carbon Dioxide 22 mmol/L (22-29); Chloride 109 mmol/L (96-108); Estimated Glomerular Filt Rate > 60; Glucose Random 84 mg/dL (60-115); Sodium 138 mmol/L (135-145); Total Protein 6.9 g/dL (6.5-8.0)
[2023-08-11 17:05] LABS: Troponin-I High Sensitivity < 2.7 ng/L (<3.5-17.0)
[2023-08-11 17:38] VITALS: BP 115/70; PULSE 57; RESP 16; TEMP 36.2; O2SAT 100
== END 2023-08-11 17:39 | disposition home or self-care (01) ==
PROVIDERS: Physician Assistant; Emergency Provider Emergency Medicine
DX: L73.2 Hidradenitis suppurativa (principal); L02.416 Cutaneous abscess of left lower limb; E66.9 Obesity, unspecified; Z68.35 Body mass index [BMI] 35.0-35.9, adult
CPT/HCPCS: 36415; 80053; 84484; 85025; 93005; 96372; 99283; 99284; J1885

== ENCOUNTER → 2023-08-11 12:09 | Outpatient (BNV) | payer OTHER, SELFPAY | PROVIDERS: Emergency Provider Emergency Medicine; Visit Provider Internal Medicine | DX: I49.9 Cardiac arrhythmia, unspecified (principal) | CPT/HCPCS: 93010 ==

== ENCOUNTER 2023-08-17 14:58 | Outpatient (AMB) | payer OTHER, SELFPAY ==
--- NOTE | 2023-08-17 15:03 | MHC.OFFVIS ---
Vital Signs 08/17/23 15:13 Height 5 ft Weight 180 lb BMI 35.2 BP 137/76 Blood Pressure Location Rt brachial Position Sitting Pulse 83 Intake Visit Reasons: Hidradenitis suppurativa inner thigh Intake Note: Patient referred after ER visit for abscess on Lt upper thigh. Hx of HS. Patient c/o: mild improvement with Cephalexin course, clindamycin gel. Saw derm who prescribed topical abx but no improvement 2yrs ago. 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 Because of persistence of symptoms and chronic infections, she would like to know if there is a surgical option for her ailment. She has been seen by Dermatology with limited success in resolving her symptoms. She has no such symptoms elsewhere. Chart was reviewed and patient evaluated [facility] Medical History (Updated 08/17/23 @ 15:12 by ALEXANDRIA Bradshaw) Abscess Asthma Social History (Updated 08/17/23 @ 15:12 by ALEXANDRIA Bradshaw) Alcohol intake: current Alcohol intake frequency: 0-2 drinks per day Tobacco use type: Cigarette Cigarettes Per Day: 12 Physical Exam Vital Signs: Last Vital Signs Pulse 83 08/17/23 15:13 BP 137/76 08/17/23 15:13 BMI result Body Mass Index 35.2 Chest Other: Chest breath sounds bilaterally, HS 1 in 2 GI Other: Abdomen is soft, benign, corpulent Skin Other: Patien has chronic id retinitis suppurative of findings of bilateral upper inner thighs left greater than right. Assessment & Plan Assessment & Plan (1) Hidradenitis suppurativa: Code(s): L73.2 - Hidradenitis suppurativa Category: Surgical Plan I discussed at length with the patient therapeutic options which include continued conservative therapy or surgical excision. I discussed with her that the majority of the disease can be excised but there is limitation as to how large the resection margin can be without compromising closure of the skin wound site. Since the left side is more symptomatic, she wishes to proceed with this side 1st. Risks, benefits, alternatives of the procedure of wide local excision of hidradinitis suppurative pleura the left upper inner thigh skin included but not limited to bleeding, infection, recurrence, numbness, pain, scarring, seroma formation, wound dehiscence and the patient wishes to proceed. All questions answered. Arrangements made for this. Coding Level of Care Code New Pt Level 5 (93768) Diagnoses Hidradenitis suppurativa L73.2
[2023-08-17 15:13] VITALS: BP 137/76; PULSE 83; BMI 35.2
== END 2023-08-17 15:23 | disposition home or self-care (01) ==
PROVIDERS: Visit Provider Surgery
DX: L73.2 Hidradenitis suppurativa (principal)
CPT/HCPCS: 99204

== ENCOUNTER → 2023-08-17 14:58 | Outpatient (BNVA) | payer OTHER, SELFPAY | PROVIDERS: Visit Provider Surgery | DX: L73.2 Hidradenitis suppurativa (principal) | CPT/HCPCS: 99202 ==

== ENCOUNTER 2023-08-20 10:14 | Emergency (ER) | payer OTHER, SELFPAY ==
--- NOTE | ~2023-08-20 | US_ITS ---
EXAMINATION: US OBSTETRICAL ULTRASOUND CLINICAL INFORMATION: Pelvic pain, positive test. COMPARISON: CT abdomen/pelvis 03/15/2017. LMP: 07/23/2023. Gestational age by maternal dates is 4 weeks and 0 days. Estimated date of delivery by maternal dates is 04/28/2024. TECHNIQUE: Transabdominal and transvaginal images were obtained with the patient's consent. FINDINGS: Anteverted uterus measuring 8.1 x 4.8 x 5.1 cm. No uterine mass. The endometrium is thickened measuring up to 1.7 cm in diameter without discrete focal abnormality. No evidence of an intrauterine gestational sac at this time. The ovaries are normal in morphology with preserved flow on color and spectral Doppler at the moment of this examination. The right ovary measures 3.4 x 2.3 x 2.3 cm and the left ovary measures 3.0 x 2.3 x 3.3 cm. There is a 1.2 cm corpus luteal cyst in the left ovary. No adnexal mass. Engorged left adnexal vessels that could indicate some degree of pelvic venous insufficiency. No free fluid. US/US OB pelvic and transvaginal IMPRESSION: 1. No evidence of intrauterine gestation at the moment of this examination, possibly due to early dates. Additional differential considerations include miscarriage or ectopic . Recommend correlation with quantitative hCG and very short-term follow-up pelvic ultrasound. 2. No adnexal mass nor significant amount of free fluid. 3. Equivocal pelvic venous insufficiency in the left adnexa manifested by engorged periuterine vessels.
[2023-08-20 10:21] VITALS: BP 139/88; PULSE 78; RESP 16; TEMP 36.9; O2SAT 97; BMI 34.8
--- NOTE | 2023-08-20 10:40 | ED_ITS ---
HPI - General Adult General Chief complaint: General Medical Stated complaint: ectopic ? Time Seen by Provider: 08/20/23 10:39 Source: patient Mode of arrival: ambulatory Limitations: no limitations History of Present Illness HPI narrative: Patient is a 28 year old assigned female at with no reported medical history presenting to the emergency department today with pelvic pain and a positive test. Patient states that she has been having pelvic pain since last night, went to urgent care, and had a positive test. Patient states that she was sent here to rule out an ectopic . Patient states that she has an abscess in her left inner thigh that she has an appointment with the general surgeon for drainage on September 16. Patient denies any dizziness, lightheadedness, abdominal pain, nausea, vomiting, fever, chills, blurry vision, double vision, loss of vision, chest pain, difficulty breathing, shortness of breath, back pain, night sweats, pain with urination, increased urinary frequency, increased urinary urgency, blood in her urine or stool, syncope or a near syncopal episode, recent trauma or falls, bowel incontinence, bladder incontinence, bowel retention, bladder retention, or any other complaints at this time. Onset (ago): day(s) (1) Severity: mild Severity scale (1-10): 3 Relieving factors: none Exacerbating factors: none Associated symptoms: denies other symptoms Treatments prior to arrival: none Related Data Previous Rx's ?Medication ?Instructions ?Recorded cephalexin 500 mg tablet 500 mg PO Q6H 10 days #40 tabs 08/11/23 clindamycin phosphate 1 % topical 1 appl topical BEDTIME #30 grams 08/11/23 gel vit no.95-ferrous 1 tab PO DAILY #30 tabs 08/20/23 fumarate 28 mg-folic acid 800 mcg tablet ( Multivitamins) Allergies Allergy/AdvReac Type Severity Reaction Status Date / Time No Known Allergies Allergy Verified 08/20/23 10:23 [No Known Allergies*] Review of Systems 2 Constitutional: Constitutional: Reports no additional constitutional complaints, Denies chills, Denies fever(s) and Denies night sweats Eyes: Eyes: Reports no additional eye complaints, Denies blurry vision, Denies change in vision, Denies diplopia, Denies eye discharge, Denies loss of vision and Denies eye pain ENT: Denies dizziness Cardiovascular: Cardiovascular: Reports no additional cardiovascular complaints, Denies chest pain, Denies lightheadedness, Denies Loss of Consciousness and Denies dyspnea Respiratory: Respiratory: Reports no additional respiratory complaints and Denies dyspnea Gastrointestinal: Gastrointestinal: Reports no additional gastrointestinal complaints, Denies abdominal pain, Denies melena, Denies hematochezia, Denies change in bowel habits and Denies change in stool character Genitourinary: Genitourinary: Denies hematuria, Denies urinary frequency, Denies dysuria, Reports pelvic pain, Denies urinary incontinence, Denies urinary hesitancy and Denies urinary urgency Musculoskeletal: Musculoskeletal: Reports no additional musculoskeletal complaints, Denies numbness and Denies tingling Neurologic: Denies dizziness, Denies loss of vision, Denies numbness and Denies tingling Psychiatric: Psychiatric: Reports no additional psychiatric complaints Endocrine: Endocrine: Reports no additional endocrine complaints Hematologic/Lymphatic: Hematologic/Lymphatic: Reports no additional hematologic/lymphatic complaints Allergic/Immunologic: Allergic/Immunologic: Reports no additional allergic/immunologic complaints PMFSH Past Medical History Attestation statement: The following information was validated with the patient. Source: old records reviewed and nursing notes reviewed Medical History Abscess Asthma Social History Social History Alcohol intake: current Alcohol intake frequency: 0-2 drinks per day Tobacco use type: Cigarette Cigarettes Per Day: 12 Physical Exam ED Vital Signs: Vital Signs - 24 hr 08/20/23 10:21 08/20/23 11:49 Temperature 98.5 F 98.6 F Pulse Rate 78 55 Respiratory Rate 16 20 Blood Pressure 139/88 110/65 Pulse Oximetry 97 98 Oxygen Delivery Method Room Air Room Air BMI result Body Mass Index 34.8 Const General: cooperative, no acute distress, alert and awake Nutritional Appearance: well nourished Orientation/consciousness: patient oriented x3 Limitations: no limitations HENMT Head: Yes normal to inspection and Yes atraumatic Ears: hearing grossly normal bilaterally and external ears normal General nose exam: Normal external nose present, no nasal discharge noted and no epistaxis Face and sinus: Yes normal facial exam, No abrasion and No laceration Mouth: Normal oral and palatal mucosa present, no drooling and no muffled voice Eyes General: appearance normal, both eyes and all related structures Periorbital: periorbital findings normal Eyelids: Yes eyelids normal Conjunctivae: conjunctivae normal Pupils: Equal, round and reactive pupils present EOM: EOMs intact bilaterally Neck Neck: Yes normal visual inspection, Yes full ROM and Yes no lymphadenopathy Chest Chest palpation & inspection: normal inspection of the chest Resp Effort & Inspection: normal respiratory effort and able to speak in complete sentences GI Inspection: Yes normal to inspection Palpation (GI): Soft to palpation, not firm, nontender, no guarding and not rigid Neuro General: patient oriented x3 and moves all extremities Cranial nerves: Yes Equal, round and reactive pupils present Cognition (Neuro): normal cognition Motor exam (neuro): 5/5 motor strength present throughout Sensory Exam: Normal double simultaneous stimulation for sensation Coordination: [id number] test normal Extrem General: Yes normal to inspection, Yes full ROM and Yes capillary refill normal Psych Appearance: grossly normal Mental Status: mental status grossly normal Affect: normal affect Attitude: cooperative Thought process: Normal thought process present Thought content: Normal thought content present Insight: Good insight present (Psych) Medical Decision Making Medical Decision Making MDM Narrative: Patient is a 28 year old assigned female at with no reported medical history presenting to the emergency department today with pelvic pain and a positive test. Patient's physical exam was unremarkable. Patient's blood work showed an HCG of 338 but was otherwise unremarkable. Patient's urine showed no acute process. Patient's pelvic US showed no evidence of intrauterine gestation - possibly due to early dates. I spoke to the OBGYN who came and examined the patient and recommended serial HCGs and following up with him outpatient. I explained my physical exam findings as well as all test results to the patient. I answered all questions asked by the patient. I stressed the importance of the patient taking her medication as prescribed. I stressed the importance of the patient following up with her primary care provider and an OBGYN. I stressed the importance of the patient returning to the emergency department immediately if her symptoms were to worsen or if she were to develop any dizziness, shortness of breath, difficulty breathing, chest pain, blurry vision, loss of vision, nausea, vomiting, abdominal pain, fever, chills, back pain, or any other complaints. Patient verbalized agreement and understanding with this treatment plan and discharge. Differential Diagnosis Differential Diagnoses: The differential diagnosis associated with the presentation includes Pelvic pain Ectopic Admission/Observation Consideration of admission/observation: Escalation of care including admission/observation considered Patient would have been admitted to the hospital had her work up had any findings where hospital admission was appropriate and her clinical presentation warranted hospital admission. Consult Healthcare Provider Management of the patient was discussed with: Psychological Anthropologist (spoke to the OBGYN iron pellet tester as noted in the MDM Rationale portion of this note.) Lab Data [facility] Lab Attestation statement: I reviewed the patient's lab results. My interpretation of these results are in the MDM Rationale portion of this note. 08/20/23 11:06 08/20/23 11:06 Labs: Lab Results 08/20/23 08/20/23 Range/Units 11:06 14:23 WBC 11.9 H (4.8-10.8) X10*3/uL RBC 4.54 (4.20-5.50) X10*6/uL Hgb 13.3 (12.0-16.0) g/dl Hct 38.6 (37.0-47.0) % MCV 85.0 (80.0-98.0) fL MCH 29.3 (27.0-33.0) pg MCHC 34.5 (31.0-35.0) g/dl RDW 14.8 (11.0-16.0) % Plt Count 300 (160-400) X10*3/uL MPV 10.0 (9.4-12.3) fL Immature Gran % (Auto) 0.5 H (0.0-0.4) % Neut % (Auto) 70.0 (45-73) % Lymph % (Auto) 23.3 (20-40) % [place] % (Auto) 5.2 (2-11) % Eos % (Auto) 0.6 (0-4) % Baso % (Auto) 0.4 (0-2) % Lymph # (Auto) 2.8 (1.2-4.9) X10*3/uL [place] # (Auto) 0.6 (0.1-1.2) X10*3/uL Eos # (Auto) 0.1 (0.0-0.4) X10*3/uL Baso # (Auto) 0.1 (0.0-0.2) X10*3/uL Abs Immat Gran (auto) 0.06 H (0.00-0.03) X10*3/uL Absolute Neuts (auto) 8.4 H (2.0-8.3) x10*3/uL Absolute Nucleated RBC 0.000 (0.0-0.012) X10*3/uL Nucleated RBC % (auto) 0.0 (0.0-0.2) /100WBC Sodium 138 (135-145) mmol/L Potassium 3.3 (3.3-5.1) mmol/L Chloride 106 (96-108) mmol/L Carbon Dioxide 22 (22-29) mmol/L Anion Gap 13 (12-20) BUN 11 (9-16) mg/dL Creatinine 0.72 (0.5-1.4) mg/dL Estim Creat Clear Calc 108.5 Estimated GFR > 60 Random Glucose 92 (60-115) mg/dL Calcium 9.0 (8.4-10.2) mg/dL Magnesium 1.7 (1.6-2.6) mg/dL Total Bilirubin 0.3 (0.0-1.0) mg/dL AST 15 (5-31) U/L ALT 17 (0-31) U/L Alkaline Phosphatase 50 (39-117) U/L Total Protein 7.1 (6.5-8.0) g/dL Albumin 3.9 (3.5-5.0) g/dL Beta HCG, Quant 338 mIU/mL Urine Color Yellow Urine Appearance Clear Urine pH 6.0 (5.0-9.0) Ur Specific [place] 1.020 (1.005-1.025) Urine Protein Negative (Neg-Trace) mg/dL Urine Glucose (UA) Negative (Negative) mg/dL Urine Ketones Negative (Negative) mg/dL Urine Blood Small (1+) H (Negative) Urine Nitrite Negative (Negative) Ur Leukocyte Esterase Negative (Negative) Urine RBC 3-5 H (0-2) /HPF Urine WBC 0-5 (0-5) /HPF Ur Squamous Epith Cells 3-5 (0-2) /HPF Urine Bacteria None Seen (None Seen) Hyaline Casts 0-2 (0-2) /LPF Shani species DNA Cancelled Chlam trachomat DNA PCR NOT DETECTED (Not Detect.) C.trachomatis RNA (TMA) Cancelled Gardnerella DNA Probe Cancelled Influenza Type A (PCR) NEGATIVE (Negative) Influenza Type B (PCR) NEGATIVE (Negative) N.gonorrhoeae DNA (PCR) NOT DETECTED (Not Detect.) N.gonorrhoeae RNA (TMA) Cancelled RSV RNA Qual (PCR) NEGATIVE (Negative) SARS-CoV-2 RNA (RT-PCR) NEGATIVE (Negative) Trichomonas DNA Probe Cancelled Bact Vag SHERLYN Interpr Cancelled Independent Interpretation I performed an independent interpretation of an: Ultrasound Interpretation: My interpretation is in agreement with the radiologist's impression of this imaging study. - EXAMINATION: US OBSTETRICAL ULTRASOUND CLINICAL INFORMATION: Pelvic pain, positive test. COMPARISON: CT abdomen/pelvis 03/15/2017. LMP: 07/23/2023. Gestational age by maternal dates is 4 weeks and 0 days. Estimated date of delivery by maternal dates is 04/28/2024. TECHNIQUE: Transabdominal and transvaginal images were obtained with the patient's consent. FINDINGS: Anteverted uterus measuring 8.1 x 4.8 x 5.1 cm. No uterine mass. The endometrium is thickened measuring up to 1.7 cm in diameter without discrete focal abnormality. No evidence of an intrauterine gestational sac at this time. The ovaries are normal in morphology with preserved flow on color and spectral Doppler at the moment of this examination. The right ovary measures 3.4 x 2.3 x 2.3 cm and the left ovary measures 3.0 x 2.3 x 3.3 cm. There is a 1.2 cm corpus luteal cyst in the left ovary. No adnexal mass. Engorged left adnexal vessels that could indicate some degree of pelvic venous insufficiency. No free fluid. US/US OB pelvic and transvaginal IMPRESSION: 1. No evidence of intrauterine gestation at the moment of this examination, possibly due to early dates. Additional differential considerations include miscarriage or ectopic . Recommend correlation with quantitative hCG and very short-term follow-up pelvic ultrasound. 2. No adnexal mass nor significant amount of free fluid. 3. Equivocal pelvic venous insufficiency in the left adnexa manifested by engorged periuterine vessels. Dictated By: Bebe Jesus Signed By: Electronically signed by Bebe Jesus 08/20/23 8972 Radiology Impression Discussion of test interpretation with radiology: I have reviewed the radiologist's reading. Critical Care Time Critical Care Time Critical Care Time: Yes Total Critical Care Time: 78 Attestation: I spent 78 minutes of Critical Care Time with this patient. This does not include time spent on separately reported billable procedures. Discharge Plan Discharge Clinical Impression: Elevated serum hCG Patient Disposition: Home, Self-Care Instructions: (ED) Additional Instructions: Return to the ED on Wednesday08/22/2023 for a repeat HCG. Take your vitamin. Follow up with your primary care provider and an OBGYN. Return to the emergency department immediately if your symptoms worsen or if you develop any dizziness, shortness of breath, difficulty breathing, chest pain, blurry vision, loss of vision, nausea, vomiting, abdominal pain, fever, chills, back pain, or any other complaints. Prescriptions: New PNV cmb#95-ferrous fumarate-FA [ Multivitamins] 28 mg iron- 800 mcg tablet 1 tab PO DAILY Qty: 30 0RF No Action clindamycin phosphate 1 % gel 1 appl topical BEDTIME Qty: 30 0RF cephalexin 500 mg tablet 500 mg PO Q6H 10 Days Qty: 40 0RF Referrals: [facility] [place]] (Call to establish and follow up with a primary care provider. If you already have a primary care provider, please follow up with them.) [facility] [place] [facility] [facility] [facility] [place]] Yoan Cortez MD [Physician] - (Call to establish and follow up with an OBGYN.) Stand Alone Forms: Work/School Release Interventions: ED Discharge Assessment Last Done: 08/20/23 15:10 Discharge Date/Time: 08/20/23 15:11 Print Language: Chinese
[2023-08-20 11:11] LABS: MANUAL DIFF FLAG NO
[2023-08-20 11:15] LABS: Basophils Absolute Auto 0.1 X10*3/uL (0.0-0.2); Basophils Percent Auto 0.4 % (0-2); Eosinophils Absolute Auto 0.1 X10*3/uL (0.0-0.4); Eosinophils Percent Auto 0.6 % (0-4); Hematocrit 38.6 % (37.0-47.0); Hemoglobin 13.3 g/dl (12.0-16.0); Imm Gran Abs Auto 0.06 X10*3/uL (0.00-0.03); Imm Gran Pct Auto 0.5 % (0.0-0.4); Lymphocytes Absolute Auto 2.8 X10*3/uL (1.2-4.9); Lymphocytes Percent Auto 23.3 % (20-40); Mean Corpuscular HGB Conc 34.5 g/dl (31.0-35.0); Mean Corpuscular Hemoglobin 29.3 pg (27.0-33.0); Monocytes Absolute Auto 0.6 X10*3/uL (0.1-1.2); Monocytes Percent Auto 5.2 % (2-11); Neutrophils Absolute Auto 8.4 x10*3/uL (2.0-8.3); Platelet Count 300 X10*3/uL (160-400); Red Blood Count 4.54 X10*6/uL (4.20-5.50); Red Cell Distribution Width 14.8 % (11.0-16.0); White Blood Count 11.9 X10*3/uL (4.8-10.8)
[2023-08-20 11:21] LABS: Appearance Urine Clear; Color Urine Yellow; Glucose Urine UA Negative (Negative); Leukocyte Esterase Urine Negative (Negative); Nitrite Urine Negative (Negative); UMIC TRIGGER UACC YES; Urine Blood Small (1+) (Negative); Urine Ketones Negative (Negative); Urine Protein Negative (Neg-Trace)
[2023-08-20 11:34] LABS: Bacteria Urine None Seen (None Seen); Hyaline Casts Urine 0-2 /LPF (0-2); WBC Urine 0-5 /HPF (0-5)
[2023-08-20 11:36] LABS: Alanine Aminotransferase 17 U/L (0-31); Albumin Level 3.9 g/dL (3.5-5.0); Alkaline Phosphatase 50 U/L (39-117); Anion Gap 13 (12-20); Aspartate Amino Transferase 15 U/L (5-31); Bilirubin Total 0.3 mg/dL (0.0-1.0); Blood Urea Nitrogen 11 mg/dL (9-16); Carbon Dioxide 22 mmol/L (22-29); Chloride 106 mmol/L (96-108); Creatinine Clr Calc Pharmacy 108.5; Estimated Glomerular Filt Rate > 60; Glucose Random 92 mg/dL (60-115); HCG Quantitative 338 mIU/mL; Magnesium 1.7 mg/dL (1.6-2.6); Potassium 3.3 mmol/L (3.3-5.1); Sodium 138 mmol/L (135-145); Total Protein 7.1 g/dL (6.5-8.0)
[2023-08-20 11:49] VITALS: BP 110/65; PULSE 55; RESP 20; TEMP 37; O2SAT 98
[2023-08-20 11:55] LABS: Influenza A PCR NEGATIVE (Negative); Influenza B PCR NEGATIVE (Negative); Resp Syncy Virus RNA Qual PCR NEGATIVE (Negative); SARS COV2 PCR INHOUSE NEGATIVE (Negative)
--- NOTE | 2023-08-20 13:58 | PM.GYNCN ---
RADIOLOGY PRACTITIONER ASSISTANT - CN: HPI Data of Consult Consult date: 08/20/23 Primary Care Provider: None Physician Consult Narrative Narrative: I was consulted on Shama Stone who is a 28 year old female presented to emergency room with pelvic cramping and a positive test, the patient has no vaginal bleeding, no nausea or vomiting, no vaginal discharge or any other GI or symptoms. HCG= 338 cc:: CC: OB [facility] Past Medical History Medical History Abscess Asthma Social History Social History Alcohol intake: current Alcohol intake frequency: 0-2 drinks per day Tobacco use type: Cigarette Cigarettes Per Day: 12 Advance Directives: No Advance Directives Information Provided: No Meds Allergies Allergy/AdvReac Type Severity Reaction Status Date / Time No Known Allergies Allergy Verified 08/20/23 10:23 [No Known Allergies*] RADIOLOGY PRACTITIONER ASSISTANT Physical Exam Vitals Vital signs: Temp Pulse Resp BP Pulse Ox O2 Del Method 98.6 F 55 20 110/65 98 Room Air 08/20/23 11:49 08/20/23 11:49 08/20/23 11:49 08/20/23 11:49 08/20/23 11:49 08/20/23 11:49 BMI result Body Mass Index 34.8 Abdomen Auscultation/Inspection/Palpation: Normal bowel sounds, Soft, Non-distended and No tenderness Female Genitalia (Pelvic) Bladder/Urethra: Normal meatus Vulva: No lesions Mass Location: [place] Vagina: Nontender Cervix: Grossly normal and No discharge Adnexa/Parametria: Adnexal Tenderness: None, Adnexal Mass: None, Parametrial Tenderness: None and Parametrial Mass: None RADIOLOGY PRACTITIONER ASSISTANT - Results Labs 08/20/23 11:06 08/20/23 11:06 Labs: Short CBC 08/20/23 Range/Units 11:06 WBC 11.9 H (4.8-10.8) X10*3/uL Hgb 13.3 (12.0-16.0) g/dl Hct 38.6 (37.0-47.0) % Plt Count 300 (160-400) X10*3/uL BMP 08/20/23 11:06 Sodium 138 Potassium 3.3 Chloride 106 Carbon Dioxide 22 BUN 11 Creatinine 0.72 Calcium 9.0 Liver Function 08/20/23 Range/Units 11:06 Total Bilirubin 0.3 (0.0-1.0) mg/dL AST 15 (5-31) U/L ALT 17 (0-31) U/L Alkaline Phosphatase 50 (39-117) U/L Albumin 3.9 (3.5-5.0) g/dL Urine 08/20/23 Range/Units 11:06 Urine Color Yellow Urine Appearance Clear Urine pH 6.0 (5.0-9.0) Ur Specific [place] 1.020 (1.005-1.025) Urine Protein Negative (Neg-Trace) mg/dL Urine Glucose (UA) Negative (Negative) mg/dL Imaging US - abdomen: Radiologist's impression: ITS Impressions Pelvic/Transvag US 08/20/23 12:15 IMPRESSION: 1. No evidence of intrauterine gestation at the moment of this examination, possibly due to early dates. Additional differential considerations include miscarriage or ectopic . Recommend correlation with quantitative hCG and very short-term follow-up pelvic ultrasound. 2. No adnexal mass nor significant amount of free fluid. 3. Equivocal pelvic venous insufficiency in the left adnexa manifested by engorged periuterine vessels. Assessment and Plan (1) Early stage of : Status: Acute Discussed with the patient the level of hCG and the ultrasound findings; the differential diagnosis includies but not limited to early intrauterine gestation, early SAB or ectopic . Signs and symptoms of SAB and ectopic were discussed with the patient, instructions given the patient to call or go to emergency room in case of pelvic pain and /or vaginal bleeding, nausea or vomiting . In addition, Instructions given the patient to come to the emergency room for a follow-up hCG quantitative in 48 hours, on 08/22/2023 (order placed) and to have a repeat in hCG quantitative in another 48 hours in the outpatient lab in the hospital on 08/24/23 (order placed) and to schedule a follow-up appointment in the office on 08/24/2023. Explained to the patient the critical clinical situation and the importance of a close follow-up/evaluation with hCG quantitative and a follow-up appointment/evaluation in order to differentiate between intrauterine gestation SAB and ectopic . All questions answered, the patient verbalized understanding and agreed with the plan
[2023-08-20 15:10] VITALS: BP 125/86; PULSE 85; RESP 20; TEMP 36.6; O2SAT 100
[2023-08-20 16:09] LABS: CT PCR NOT DETECTED (Not Detect.); NG PCR NOT DETECTED (Not Detect.)
== END 2023-08-20 15:11 | disposition home or self-care (01) ==
PROVIDERS: Obstetrics & Gynecology; Physician Assistant Medical; Emergency Provider Student in an Organized Health Care Education/Training Program
DX: R10.2 Pelvic and perineal pain (principal); Z11.52 Encounter for screening for COVID-19; Z20.822 Contact with and (suspected) exposure to COVID-19; Z79.899 Other long term (current) drug therapy
CPT/HCPCS: 0241U; 0353U; 76801; 76817; 80053; 81001; 83735; 84702; 85025; 87480; 87510; 87660; 99284

== ENCOUNTER → 2023-08-20 10:37 | Outpatient (BNV) | payer OTHER, SELFPAY | PROVIDERS: Emergency Provider Student in an Organized Health Care Education/Training Program; Visit Provider Obstetrics & Gynecology | DX: Z34.90 Encounter for supervision of normal pregnancy, unspecified, unspecified trimester (principal) | CPT/HCPCS: 99283 ==

== ENCOUNTER 2023-08-22 06:59 | Outpatient (REF) | payer OTHER, SELFPAY ==
[2023-08-22 08:23] LABS: HCG Quantitative 615 mIU/mL
== END 2023-08-22 07:00 | disposition home or self-care (01) ==
LOC: HO.LAB 06:59
PROVIDERS: Obstetrics & Gynecology; Visit Provider Physician Assistant Medical
DX: Z34.90 Encounter for supervision of normal pregnancy, unspecified, unspecified trimester (principal)
CPT/HCPCS: 36415; 84702

== ENCOUNTER 2023-08-24 08:32 | Outpatient (REF) | payer OTHER, SELFPAY ==
[2023-08-24 09:39] LABS: HCG Quantitative 1172 mIU/mL
== END 2023-08-24 08:33 | disposition home or self-care (01) ==
LOC: HO.LAB 08:32
PROVIDERS: Visit Provider Obstetrics & Gynecology
DX: Z34.90 Encounter for supervision of normal pregnancy, unspecified, unspecified trimester (principal); Z71.2 Person consulting for explanation of examination or test findings
CPT/HCPCS: 36415; 84702; 99212

== ENCOUNTER 2023-08-24 08:32 | Outpatient (AMB) | payer OTHER, SELFPAY ==
--- NOTE | 2023-08-24 09:42 | A.OFFVIS_ITS ---
Vital Signs 08/24/23 09:43 Height 5 ft Weight 178 lb 9.191 oz BMI 34.9 BP 118/70 Intake Visit Reasons: HCG follow [employer] Required: No Information Interpreted: non-clinical & clinical Accompanied by: Spouse Allergies No Known Allergies [No Known Allergies*] Allergy (Verified 08/24/23 09:46) HPI Comments Details: Presenting for ED follow-up on 08/20/2023 where pelvic ultrasound was done showed the following: Anteverted uterus measuring 8.1 x 4.8 x 5.1 cm. No uterine mass. The endometrium is thickened measuring up to 1.7 cm in diameter without discrete focal abnormality. No evidence of an intrauterine gestational sac at this time. The ovaries are normal in morphology with preserved flow on color and spectral Doppler at the moment of this examination. The right ovary measures 3.4 x 2.3 x 2.3 cm and the left ovary measures 3.0 x 2.3 x 3.3 cm. There is a 1.2 cm corpus luteal cyst in the left ovary. No adnexal mass. Engorged left adnexal vessels that could indicate some degree of pelvic venous insufficiency. No free fluid. GC/CT were negative 08/20/2023 HCG= 338 08/22/2023 hCG was 615 Today's hCG is 1172 The patient is doing well with no pelvic pain and or bleeding PFSH Medical History Abscess Asthma Social History Alcohol intake: current Alcohol intake frequency: 0-2 drinks per day Tobacco use type: Cigarette Cigarettes Per Day: 12 Physical Exam GI Palpation (GI): Soft to palpation and nontender Assessment & Plan Assessment & Plan (1) Early stage of : Code(s): Z34.90 - Encounter for supervision of normal , unspecified, unspecified trimester Category: Medical Plan: Discussed with the patient the rate of rise of hCG from 08/19 till today is above the minimum expectant. Explained to the patient that 99% of normal intrauterine pregnancies will have a rate of increase faster than this minimum. However, even hCG patterns consistent with a growing gestation do not eliminate the possibility of an ectopic ? Signs and symptoms SAB/ectopic given the patient , she is to call or go to emergency room in case of vaginal bleeding and or pelvic pain will repeat hCG in 48 hours with ultrasound to document intrauterine gestation. vitamin 1 tablet p.o. q.d. All questions answered, the patient verbalized understanding Orders: Orders US OB pelvic and transvaginal 2 Days Z34.90 - Encounter for supervision of normal , unspecified, unspecified trimester HCG Quantitative 2 Days Z34.90 - Encounter for supervision of normal , unspecified, unspecified trimester Coding Level of Care Code Est Pt Level 3 (53276) Diagnoses Early stage of Z34.90
[2023-08-24 09:43] VITALS: BP 118/70; BMI 34.9
== END 2023-08-24 10:42 | disposition home or self-care (01) ==
PROVIDERS: Visit Provider Obstetrics & Gynecology
DX: Z34.90 Encounter for supervision of normal pregnancy, unspecified, unspecified trimester (principal)
CPT/HCPCS: 99213

== ENCOUNTER 2023-08-26 07:26 | Outpatient (REF) | payer OTHER, SELFPAY ==
--- NOTE | ~2023-08-26 | US_ITS ---
EXAMINATION: US OBSTETRICAL ULTRASOUND CLINICAL INFORMATION: COMPARISON: Pelvic ultrasound 08/20/2023 LMP: 07/23/2023. Gestational age by maternal dates is 4 weeks 6 days. Estimated date of delivery by maternal dates is 04/28/2024. TECHNIQUE: Ultrasound of the maternal pelvis is performed using transabdominal and transvaginal transducers. Transvaginal imaging is performed due to inadequate visualization transabdominally. M-mode Doppler is also performed. FINDINGS: There is a questionable, possibly collapsed tiny gestational sac with no visible yolk sac, embryo/fetus or cardiac activity. On the 08/20/2023 study, no gestational sac was seen. The anterior uterus appears heterogeneous and slightly hypoechoic. MATERNAL ADNEXA: The right maternal ovary measures 2.9 x 2.0 x 2.3 cm. The left maternal ovary measures 3.5 x 2.5 x 2.6 which includes a 2.2 x 2.1 x 1.5 cm possible corpus luteal cyst There is no significant maternal adnexal mass. No maternal pelvic ascites. US/US OB pelvic and transvaginal IMPRESSION: A questionable, possibly collapsed, gestational sac is present without a pole. Correlation with beta hCG levels is recommended, as nonvisualization of a pole could be due to an early stage of . Alternatively, lack of pole may also be seen with missed or ectopic , although no adnexal mass is seen to strongly suggest ectopic . Short-term sonographic follow-up and serial beta hCG levels are recommended to assess for development of a pole.
[2023-08-26 08:02] LABS: HCG Quantitative 2073 mIU/mL
== END 2023-08-26 07:27 | disposition home or self-care (01) ==
LOC: HO.US 07:26
PROVIDERS: Visit Provider Obstetrics & Gynecology
DX: Z34.91 Encounter for supervision of normal pregnancy, unspecified, first trimester (principal)
CPT/HCPCS: 36415; 76801; 76817; 84702; 99212

== ENCOUNTER 2023-08-26 12:30 | Outpatient (AMB) | payer OTHER, SELFPAY ==
[2023-08-26 12:47] VITALS: BP 116/68; BMI 34.9
--- NOTE | 2023-08-26 12:47 | A.OFFVIS_ITS ---
Vital Signs 08/26/23 12:47 Height 5 ft Weight 178 lb 9.191 oz BMI 34.9 BP 116/68 Intake Visit Reasons: US follow up/Labs per [employer] Required: No Information Interpreted: non-clinical & clinical Accompanied by: Spouse Allergies No Known Allergies [No Known Allergies*] Allergy (Verified 08/26/23 12:48) HPI Comments Details: Presenting for follow-up hCG and ultrasound, doing well with no complaints no pelvic cramping and or bleeding. On vitamin 1 tablet p.o. q.d. HCG on 08/19 was 336 08/21 hCG= 615 08/23 hCG= 1172 08/25 hCG= 2073 Ultrasound done today, the report is still pending, unofficial reading showed intrauterine gestational sac measuring 5 weeks and 1 day of gestation with no pole or yolk sac PFSH Medical History Abscess Asthma Social History Alcohol intake: current Alcohol intake frequency: 0-2 drinks per day Tobacco use type: Cigarette Cigarettes Per Day: 12 Review of Systems Const All systems reviewed & are unremarkable except as noted in HPI and below Reports as per HPI and Reports no additional complaints GI Reports no additional complaints Reports no additional complaints Physical Exam Vital Signs: Last Vital Signs BP 116/68 08/26/23 12:47 BMI result Body Mass Index 34.9 Assessment & Plan Assessment & Plan (1) Early stage of : Code(s): Z34.90 - Encounter for supervision of normal , unspecified, unspecified trimester Category: Medical Plan: Discussed with the patient the rate of rise of hCG and the findings on ultrasound. SAB/ectopic warnings given to patient she is to call or go to emergency room in case of pelvic pain and or vaginal bleeding and follow-up in 2 weeks for repeat ultrasound to documented viability. vitamin 1 tablet p.o. q.d. All questions answered, the patient verbalized understanding Orders: Orders US OB <= 14 weeks fetus 2 Weeks Z34.90 - Encounter for supervision of normal , unspecified, unspecified trimester Coding Level of Care Code Est Pt Level 3 (93710) Diagnoses Early stage of Z34.90
== END 2023-08-26 13:00 | disposition home or self-care (01) ==
LOC: HO.HWS 12:30
PROVIDERS: Visit Provider Obstetrics & Gynecology
DX: Z34.90 Encounter for supervision of normal pregnancy, unspecified, unspecified trimester (principal)
CPT/HCPCS: 99213

== ENCOUNTER 2023-08-28 07:43 | Outpatient (REF) | payer OTHER, SELFPAY ==
[2023-08-28 09:37] LABS: HCG Quantitative 3902 mIU/mL
== END 2023-08-28 07:44 | disposition home or self-care (01) ==
LOC: HO.LAB 07:43
PROVIDERS: Visit Provider Obstetrics & Gynecology
DX: Z34.90 Encounter for supervision of normal pregnancy, unspecified, unspecified trimester (principal)
CPT/HCPCS: 36415; 84702

== ENCOUNTER 2023-08-30 10:51 | Outpatient (REF) | payer OTHER, SELFPAY ==
--- NOTE | ~2023-08-30 | US_ITS ---
EXAMINATION: US OBSTETRICAL ULTRASOUND CLINICAL INFORMATION: Follow-up . COMPARISON: Obstetrical ultrasound examinations dated 08/26/2023 and 08/20/2023. LMP: 07/23/2023. Gestational age by maternal dates is 5 weeks and 3 days. Estimated date of delivery by maternal dates is 04/28/2024. TECHNIQUE: Ultrasound of the maternal pelvis is performed using transabdominal and transvaginal transducers. Transvaginal imaging is performed due to inadequate visualization transabdominally. M-mode Doppler is also performed. FINDINGS: There is a single intrauterine gestational sac with visible yolk sac, embryo/fetus, and cardiac activity. There is no significant subchorionic hemorrhage or hematoma. HR: 114 beats per minute. CRL (crown rump length): 0.21 cm (5 weeks and 6 days +/- 4 days). BRENNON (estimated date of delivery): 04/25/2024 +/- 4 days. MATERNAL ADNEXA: The right maternal ovary measures 2.1 x 3.8 x 1.9 cm. The left maternal ovary measures 2.6 x 3.7 x 2.5 cm. The left ovary contains a 1.9 cm corpus luteum cyst. There is no significant maternal adnexal mass. No maternal pelvic ascites. US/US OB <= 14 weeks fetus IMPRESSION: 1. Single intrauterine gestation with ultrasound gestational age of 5 weeks and 6 days +/- 4 days. No subchorionic hemorrhage is noted. 2. Estimated date of delivery is 04/25/2024 +/- 4 days. 3. No maternal adnexal mass or pelvic ascites.
[2023-08-30 11:25] LABS: HCG Quantitative 8004 mIU/mL
== END 2023-08-30 10:52 | disposition home or self-care (01) ==
LOC: HO.US 10:51
PROVIDERS: Visit Provider Obstetrics & Gynecology
DX: Z34.90 Encounter for supervision of normal pregnancy, unspecified, unspecified trimester (principal)
CPT/HCPCS: 36415; 76801; 84702; 99212

== ENCOUNTER 2023-08-30 12:28 | Outpatient (AMB) | payer OTHER, SELFPAY ==
--- NOTE | 2023-08-30 12:32 | A.OFFVIS_ITS ---
Vital Signs 08/30/23 12:33 Height 5 ft Weight 178 lb 9.191 oz BMI 34.9 BP 120/70 Intake Visit Reasons: HCG follow up Allergies No Known Allergies [No Known Allergies*] Allergy (Verified 08/26/23 12:48) HPI Comments Details: Presenting for follow-up ultrasound hCG. Doing well with no complaints, no pelvic cramping and or bleeding. HCG on 08/25 was 2073 On 08/27 hCG was 3902 Today on 08/29 hCG is 8004 Pelvic ultrasound report still pending, unofficial reading shows a live intrauterine at 5 weeks and 4 days of gestation BRENNON 04/28/2024, yolk sac pole and gestational sac present, heart rate at 114 beats per minute [facility] Medical History Abscess Asthma Social History Alcohol intake: current Alcohol intake frequency: 0-2 drinks per day Tobacco use type: Cigarette Cigarettes Per Day: 12 Review of Systems Const All systems reviewed & are unremarkable except as noted in HPI and below Reports as per HPI and Reports no additional complaints GI Reports no additional complaints Reports no additional complaints Physical Exam Vital Signs: Last Vital Signs BP 120/70 08/30/23 12:33 BMI result Body Mass Index 34.9 Assessment & Plan Assessment & Plan (1) Early stage of : Code(s): Z34.90 - Encounter for supervision of normal , unspecified, unspecified trimester Category: Medical Plan: Discussed with the patient the rate of rise of hCG, and the unofficial findings of ultrasound showing intrauterine live . SAB warnings given the patient, she is to call or go to emergency room in case of pelvic cramping and or bleeding. vitamin 1 tablet p.o. q.d.. Instructions given to patient to schedule a visit within 1 week. All questions answered, the patient verbalized understanding Coding Level of Care Code Est Pt Level 3 (60311) Diagnoses Early stage of Z34.90
[2023-08-30 12:33] VITALS: BP 120/70; BMI 34.9
== END 2023-08-30 12:55 | disposition home or self-care (01) ==
LOC: HO.HWS 12:28
PROVIDERS: Visit Provider Obstetrics & Gynecology
DX: Z34.90 Encounter for supervision of normal pregnancy, unspecified, unspecified trimester (principal)
CPT/HCPCS: 99213